=== PATIENT | male | born 1985 | race African-American/Black ===

== ENCOUNTER 2018-09-01 14:53 | Emergency (ER) | payer OTHER ==
[2018-09-01] MEDS ORDERED: LIDOCAINE 5% (700 MG) TRANSDERMAL ADH..PATCH TP ONE (16:02)
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
[2018-09-01 16:24] VITALS: BP 139/77
== END 2018-09-01 16:22 | disposition home or self-care (01) ==
LOC: ER 14:53
DX: M54.5 Low back pain (principal); V44.5XXA Car driver injured in collision with heavy transport vehicle or bus in traffic accident, initial encounter; Y93.89 Activity, other specified
CPT/HCPCS: 99283